=== PATIENT | male | born 1950 | race Hispanic/Latino ===

== ENCOUNTER 2017-12-26 10:15 | Emergency (ER) | payer MEDICARE ==
[2017-12-26 10:49] VITALS: RESP 18; O2SAT 98
[2017-12-26 10:50] VITALS: BMI 25.1
[2017-12-26] MEDS ORDERED: oxyCODONE 10 mg Immediate Release Tab PO STA (11:12)
--- NOTE | 2017-12-26 11:12 | ED PDOC ---
Arrival/HPI - General Chief Complaint: Pain, Chronic Time Seen by Provider: 12/26/17 11:03 Historian: Patient - History of Present Illness Narrative History of Present Illness (Text): 12/26/17 11:14 67 y/o male, pmh including chronic neck and back pain (from january 02 [employer] as he was one of the first respondents) for over 10 years which he has been on the chronic oxycodone 10mg po qid by his own pmd, nkda, c/ o need a dose of oxycodone 10mg po in the ER. Pt. stated that he he is out of the oxycodone 10mg po qid, scheduled to see his own pmd Dr. Lyman tomorrow for prescription refill, stated that he has the same neck and back pain like for the past 10 years and starting having same pain today with same characteristic and severity, only relief with oxycodone 10mg po, no chest pain or shortness of breath, no numbness or tingling, no night sweat, no rash, no change in vision, no other medical or psychological complaints. Past Medical History - Provider Review Nursing Documentation Reviewed: Yes - Cardiac Other/Comment: heart attack. 3 cardiac stent - Psychiatric Hx Substance Use: No - Surgical History Hx Coronary Stent: Yes (x3) - Anesthesia Hx Anesthesia Reactions: No Hx Malignant Hyperthermia: No Family/Social History - Physician Review Nursing Documentation Reviewed: Yes Family/Social History: Unknown Family HX Smoking Status: Current Some Days Smoker Hx Alcohol Use: Yes Frequency of alcohol use: Socially Hx Substance Use: No Allergies/Home Meds Allergies/Adverse Reactions: Allergies grass pollen Allergy (Verified 12/26/17 10:50) CONGESTION shellfish derived Allergy (Verified 12/26/17 10:50) RASH bread Allergy (Uncoded 12/26/17 10:49) RASH Home Medications: Home Meds Medication Instructions Recorded Confirmed oxyCODONE [oxyCODONE Immediate 10 mg PO Q6 PRN 12/26/17 12/26/17 Release Tab] Review of Systems - Review of Systems Constitutional: absent: Fatigue, Fevers Eyes: absent: Vision Changes Cardiovascular: absent: Chest Pain Gastrointestinal: absent: Abdominal Pain, Diarrhea, Nausea, Vomiting Musculoskeletal: Arthralgias, Back Pain, Neck Pain. absent: Joint Swelling, Myalgias Skin: absent: Rash, Pruritis Neurological: absent: Headache, Dizziness Psychiatric: absent: Anxiety, Depression Physical Exam Vital Signs Reviewed: Yes Vital Signs Temp Pulse Resp BP Pulse Ox 12/26/17 12:40 98 F 55 L 18 165/88 H 98 12/26/17 12:33 98 F 55 L 18 165/88 H 98 12/26/17 10:15 98.2 F 56 L 18 172/87 H 98 Temperature: Afebrile Blood Pressure: Hypertensive Pulse: Regular Respiratory Rate: Normal Appearance: Positive for: Well-Appearing, Non-Toxic, Comfortable Pain Distress: Severe Mental Status: Positive for: Alert and Oriented X 3 - Systems Exam Head: Present: Atraumatic, Normocephalic Pupils: Present: PERRL Extroacular Muscles: Present: EOMI Conjunctiva: Present: Normal Ears: Present: NORMAL TM, Normal Canal. No: Erythema Mouth: Present: Moist Mucous Membranes Neck: Present: Normal Range of Motion. No: Meningeal Signs, MIDLINE TENDERNESS , Paraspinal Tenderness, Lymphadenopathy Respiratory/Chest: Present: Clear to Auscultation, Good Air Exchange. No: Respiratory Distress, Accessory Muscle Use Cardiovascular: Present: Regular Rate and Rhythm, Normal S1, S2. No: Murmurs Abdomen: No: Tenderness, Distention, Peritoneal Signs Back: Present: Normal Inspection. No: CVA Tenderness, Midline Tenderness, Paraspinal Tenderness, Decubitus Ulcer Upper Extremity: Present: Normal Inspection. No: Cyanosis, Edema Lower Extremity: Present: Normal Inspection. No: Edema Neurological: Present: GCS=15, CN II-XII Intact, Speech Normal, Motor Func Grossly Intact, Memory Normal Skin: Present: Warm, Dry, Normal Color. No: Rashes Psychiatric: Present: Alert, Oriented x 3, Normal Insight, Normal Concentration Medical Decision Making ED Course and Treatment: 12/26/17 11:21 -[facility] report, does show that he has been getting percocet 10/325mg consistently by his own pmd Dr. Lyman, pt. request oxycodone 10mg po without tylenol in the ER, ordered. -Pt. has no new injury or fall and no change in severity or characteristic of pain, no emergent need of imaging indicated on this visit. 12/26/17 12:31 -Pain improved, BP down to 160s systolics, no cardiopulmonary complaints, feeling much better. -I explained to the patient that I do not give prescription refill for narcotics as he has been getting it from pmd, and he has an appointment tomorrow for follow up, pt. verbally expressed understanding. -Discharge home with lidoderm patch, please see your own pmd DR. Lyman tomorrow for the prescription refill, return to the ER for any new or worsening signs or symptoms. - Medication Orders Current Medication Orders: Discontinued Medications Oxycodone HCl (Oxycodone Immediate Release Tab) 10 mg PO STAT STA Stop: 12/26/17 11:13 Last Admin: 12/26/17 11:20 Dose: 10 mg MAR Pain Assessment Document 12/26/17 11:20 SRE (Rec: 12/26/17 11:21 SRE [id number]) Pain Reassessment Is this a pain reassessment? Yes Sleep Is patient sleeping during reassessment? 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 Disposition/Present on Arrival - Present on Arrival Any Indicators Present on Arrival: No History of DVT/PE: No History of Uncontrolled Diabetes: No Urinary Catheter: No History of Decub. Ulcer: No History Surgical Site Infection Following: None - Disposition Have Diagnosis and Disposition been Completed?: Yes Diagnosis: Encounter for pain management Disposition: HOME/ ROUTINE Disposition Time: 11:23 Patient Plan: Discharge Condition: IMPROVED Additional Instructions: -Discharge home with lidoderm patch, please see your own pmd DR. Lyman tomorrow for the prescription refill, return to the ER for any new or worsening signs or symptoms. Prescriptions: Lidocaine 5% [Lidoderm] 1 patch TP DAILY PRN #14 patch PRN Reason: Other Referrals: Josy Lyman MD [Primary Care Provider] - Follow up with primary Forms: Yippy (German), WORK NOTE
[2017-12-26 12:34] VITALS: BP 165/88; PULSE 55; TEMP 98
== END 2017-12-26 12:39 | disposition home or self-care (01) ==
LOC: ED 10:15
DX: G89.29 Other chronic pain (principal); M54.2 Cervicalgia; M54.9 Dorsalgia, unspecified